=== PATIENT | male | born 1960 | race Caucasian/White ===

== ENCOUNTER → 2017-11-16 16:07 | Outpatient (CLI) | payer BC, SELFPAY ==
[2017-11-16 16:45] LABS: Add Manual Diff / Slide Review NO; Basophils Percent Auto 0.8 % (0-2); Eosinophils Percent Auto 2.9 % (2-4); Hematocrit 46.2 % (41-53); Hemoglobin 15.9 g/dL (13.5-17.5); Lymphocytes Percent Auto 28.6 % (25-40); Mean Corpuscular HGB Conc 34.5 % (30-36); Mean Corpuscular Hemoglobin 28.4 PG (26-34); Mean Corpuscular Volume 82.2 fL (80-100); Monocytes Percent Auto 9.6 % (3-14); Neutrophils Absolute Auto 3000 /uL (3000-5900); Neutrophils Percent Auto 58.1 % (50-75); Platelet Count 177 X10^3/uL (150-400); Red Blood Cell Count 5.61 X10^6/uL (4.5-5.9); Red Cell Distribution Width 15.2 % (11.6-14.8); White Blood Cell Count 5.1 X10^3/uL (4.5-11.0)
[2017-11-16 17:04] LABS: Alanine Aminotransferase 43 IU/L (21-72); Albumin 4.7 g/dL (3.5-5.0); Albumin Globulin Ratio 1.7 (1.0-2.8); Alkaline Phosphatase 61 U/L (38-126); Aspartate Aminotransferase 26 IU/L (17-59); BUN Creatinine Ratio 18.9 (6-22); Bilirubin Total 0.6 mg/dL (0.2-1.3); Blood Urea Nitrogen 17 mg/dL (9-20); Calcium 10.5 mg/dL (8.4-10.2); Carbon Dioxide 31 mmol/L (22-32); Chloride 100 mmol/L (98-107); Estimated Glomerular Filt Rate > 60.0 mL/min (>60); Globulin 2.8 g/dL (1.7-4.1); Glucose 104 mg/dL (70-100); HEMOLYSIS < 15 (0-50); Sodium 143 mmol/L (137-145); Total Protein 7.5 g/dL (6.3-8.2)
== END ==
PROVIDERS: Visit Provider Specialist
DX: K80.20 Calculus of gallbladder without cholecystitis without obstruction (principal); R10.11 Right upper quadrant pain
CPT/HCPCS: 36415; 80053; 85025

== ENCOUNTER 2017-11-22 21:21 | Observation (INO) | payer BC, SELFPAY ==
[2017-11-20 15:15] VITALS: BMI 45.4
[2017-11-22] VITALS (13 sets, daily range): BP systolic 122–184; BP diastolic 73–110; PULSE 71–97; RESP 12–20; TEMP 35.9–37.1; O2SAT 92–99; BMI 44.6
--- NOTE | 2017-11-22 | PATH_ITS ---
[facility] Accession Number: [id number] . 01 Material submitted: . GALLBLADDER . 02 Diagnosis: Gallbladder: Cholelithiasis with associated chronic cholecystitis. MRV/11/26/2017 . 02 Electronically signed: . Zbigniwe Zhang MD, Pathologist NPI- [id number] . 01 Gross description: . Received in formalin, labeled with the patient's name and gallbladder, is a 4.5 x 3.1 x 2.1 cm significantly disrupted, meier-brown gallbladder with multiple adhesions on the external surface. The wall appears fibrotic and averages 0.2 cm in thickness. The mucosa is green-brown with diffuse yellow stippling. Two black multifaceted gallstones are present measuring 1.5 cm and 1.6 cm in greatest dimension. Hr Analyst sections of cystic duct and gallbladder mucosa are submitted in cassette A1. (SAULO:[id number]) /FRR . 02 Pathologist provided ICD-10: K80.64 . 02 CPT . 585149 Performed at: 01 [facility] [address] [place] [address], [place], [place] [id number] MD Solis Khoury MD Phone: [phone] Performed at: 02 [facility] [address] [place], [place] [id number] MD Raul Long MD Phone: [phone]
--- NOTE | 2017-11-22 14:58 | PM.PREOP ---
Pre-operative Note Interval Note Pre-op Check: Yes History & Physical Reviewed by Physician and Yes Exam Performed Changes: Yes H&P completed within 30 days and has changed as indicated here:: Has a reddened area and cellulitis around a pimple in his left lower abdomen. It is not anywhere near where I will be making an incision so I think it is safe to proceed though I will have to treat him for cellulitis postoperatively.
[2017-11-22] MEDS: LACTATED RINGERS 1,000 ML 42 ML IV ×2 (15:00→17:50)
--- NOTE | 2017-11-22 15:04 | SUR.PREOP ---
dr orozco informed about scab and redness to l lower abdomen, in to see pt. no new orders, iv started by michele daley.
[2017-11-22] MEDS: CEFAZOLIN 2 GM/100 ML FROZ.PIGGY IV ×2 (16:02→22:53)
--- NOTE | 2017-11-22 16:30 | SUR.OPER ---
Supine on padded OR bed, head on pillow, arms secured on padded arm boards at <90 degrees abduction, legs uncrossed, safety belt at thigh, tape over blanket over lower legs.
[2017-11-22] MEDS: BUPIVACAINE 0.5% (PF) VIAL 30 ML INJ (16:52)
[2017-11-22] MEDS: LACTATED RINGERS 1,000 ML 100 ML IV (20:14)
--- NOTE | 2017-11-22 20:21 | PM.OP.1 ---
Operative Date/Time/Diagnoses Date of procedure: 11/22/17 Time of procedure: 20:00 Pre-op diagnosis: Cholelithiasis cholecystitis Post-op diagnosis: same (Chronic) Procedure & Clinicians Procedure: Laparoscopic cholecystectomy Same procedure as scheduled: Yes Indications: Upper abdominal pain and gallstones Surgeon: Shlomo Nicholson Click Yes if Unassisted: Yes Anesthesia Type: General Operative Notes Findings: Very abnormal gallbladder situated initially under the left lobe of the liver with chronic adhesions throughout. Very difficult operation Closure Type: primary Specimen(s): other (Gallbladder) Implants & Drains: 7 mm Todd-Lal drain Estimated Blood Loss (mL): 150 Blood products transfused: none Procedure in detail: Patient was placed supine on the operating room table and underwent general endotracheal anesthesia. He was prepped and draped in the usual fashion. I excluded the cellulitis in his left lower abdomen. Because of his very large size and made an incision above his umbilicus in the midline and carried down under direct vision in the peritoneal cavity. Stay sutures of 0 Polysorb were placed the fascia. And a son cannula was inserted. I inserted 2 ports 1 in the right lateral abdomen and 1 just to the right of midline and to the costal margin. Through these I attempted to locate the gallbladder. There were extensive adhesions of omentum to the liver that appeared to be chronic and may have been related to his prior pyloromyotomy as a child. These were taken down sharply and with cautery. After I freed up the entire right lobe of the liver edge I still had not found the gallbladder. With further dissection it was located actually to the left of the midline near the falciform but under the left lobe of the liver. Dissected free of surrounding adhesions with great care and I was able to elevate it. There was extensive adhesions to its surface and the anatomy was completely distorted. In addition, because of the location of my ports it became very difficult to see anything in the usual manner. I added a 4th port in the midclavicular line under the costal margin. I was limited somewhat by the scarring from his pyloromyotomy. I dissected omentum and fat off of the gallbladder with great care going very slowly and only dividing those things going directly to the gallbladder. Because the an anatomic distortion I did not want to assume any typical anatomy. I divided what initial at that was a cystic duct but it turned out to be a cystic artery. Three clips were placed across it was divided leaving 2 in the patient. The gallbladder was fragile and with the usual type of retraction and it opened and drained. There were no stones that came out however. Using the fact that I could see into the gallbladder I dissected it free of the liver and ultimately was left with a gallbladder attached at its end and presumptively the cystic duct. Through the opening I could see multiple stones and I pulled these out 1 at a time. They were wedged into the end of the gallbladder. Once I had cleared all of them by pulling them out 1 at a time I decided to pace placed a loop on the end of the gallbladder rather than attempting further dissection into heavily scarred and adhesed tissue. Two loops were ultimately used. I actually had to add an additional port in order to see and placed the loops appropriately. One gathered the tissue together the 2nd was slid down to the end of the gallbladder. There did not appear to be any compression of surrounding structures. The right upper quadrant was irrigated and suctioned free of fluid. There was no evidence of bilious drainage. The dissection had been quite difficult and the procedure took over 3 and 0.5 hr to perform. I placed a Todd-Lal drain 7 mm in the gallbladder fossa region and brought it out through the most lateral port. It was secured with a 3 0 nylon. The ports were all removed. The wounds were irrigated. Stay sutures at the umbilicus were tied after placing additional 0 Maxon between these 2 stitches. The subcu at the umbilicus was closed with 4 0 Polysorb and the skin in all areas was closed with interrupted 4 0 Polysorb subcuticular stitches except for the port above the umbilicus which was closed with a running subcuticular stitch. Steri-Strips were applied the patient was awakened and taken recovery area in good condition. There were no apparent complications. Complications: none Condition: stable Disposition: PACU
--- NOTE | 2017-11-22 21:15 | PC.NURSE ---
Heather shift note: Received patient to AC from PACU in stable condition. Patient awake, alert, and talkative. Abdomen tender, distended, hypoactvie BS. x 4 Large bandaids to mid and LUQ. Small bandaid to LLQ. CDI. 4 x 4 gauze dressing to RLQ with shadowing, secured with Island dressing, JANY secured with Sanguinous drainage noted. Patient on O2 at 2L via NC. VSS. Sister at bedside providing supportive care, SCDs in place.
[2017-11-22] MEDS: LACTATED RINGERS 1,000 ML 125 ML IV (22:02)
[2017-11-22] MEDS: ACETAMINOPHEN 325 MG TABLET 650 MG PO (22:02)
[2017-11-22] MEDS: OXYCODONE IR 5 MG TABLET 10 MG PO (23:56)
[2017-11-23] VITALS (7 sets, daily range): BP systolic 111–198; BP diastolic 66–112; PULSE 76–107; RESP 16–18; TEMP 36.5–36.9; O2SAT 93–97
[2017-11-23] MEDS: hydroCHLOROthiazide 25 MG TABLET PO ×2 (02:08→08:07)
[2017-11-23] MEDS: LOSARTAN 25 MG TABLET 50 MG PO (02:09)
[2017-11-23] MEDS: ACETAMINOPHEN 325 MG TABLET 650 MG PO ×2 (04:11→14:24)
[2017-11-23] MEDS: CEFAZOLIN 2 GM/100 ML FROZ.PIGGY IV ×2 (04:56→12:32)
[2017-11-23 05:59] LABS: Add Manual Diff / Slide Review NO; Basophils Percent Auto 0.2 % (0-2); Eosinophils Percent Auto 0.1 % (2-4); Hematocrit 42.8 % (41-53); Hemoglobin 14.7 g/dL (13.5-17.5); Lymphocytes Percent Auto 6.4 % (25-40); Mean Corpuscular HGB Conc 34.3 % (30-36); Mean Corpuscular Hemoglobin 28.7 PG (26-34); Mean Corpuscular Volume 83.6 fL (80-100); Monocytes Percent Auto 3.9 % (3-14); Neutrophils Absolute Auto 8100 /uL (3000-5900); Neutrophils Percent Auto 89.4 % (50-75); Platelet Count 158 X10^3/uL (150-400); Red Blood Cell Count 5.12 X10^6/uL (4.5-5.9); Red Cell Distribution Width 14.6 % (11.6-14.8); White Blood Cell Count 9.1 X10^3/uL (4.5-11.0)
[2017-11-23 06:08] LABS: Alanine Aminotransferase 73 IU/L (21-72); Albumin 4.2 g/dL (3.5-5.0); Albumin Globulin Ratio 1.5 (1.0-2.8); Alkaline Phosphatase 48 U/L (38-126); Aspartate Aminotransferase 67 IU/L (17-59); BUN Creatinine Ratio 22.5 (6-22); Bilirubin Total 0.7 mg/dL (0.2-1.3); Blood Urea Nitrogen 18 mg/dL (9-20); Calcium 9.4 mg/dL (8.4-10.2); Carbon Dioxide 27 mmol/L (22-32); Chloride 101 mmol/L (98-107); Estimated Glomerular Filt Rate > 60.0 mL/min (>60); Globulin 2.8 g/dL (1.7-4.1); Glucose 166 mg/dL (70-100); HEMOLYSIS 16 (0-50); Potassium 4.4 mmol/L (3.4-5.1); Sodium 139 mmol/L (137-145)
[2017-11-23] MEDS: LACTATED RINGERS 1,000 ML 125 ML IV (06:59)
[2017-11-23] MEDS: ENOXAPARIN 40 MG/0.4 ML SYRINGE SUBCUT (08:06)
[2017-11-23] MEDS: LOSARTAN 50 MG TABLET 100 MG PO (08:07)
[2017-11-23] MEDS: GABAPENTIN 300 MG CAPSULE PO (08:07)
[2017-11-23] MEDS: OXYCODONE IR 5 MG TABLET 10 MG PO (08:08)
--- NOTE | 2017-11-23 13:36 | CM.DANOTE ---
Discharge Planning/Care Management CM Discharge Assessment Start: 11/23/17 13:34 Freq: Status: Active Protocol: Document 11/23/17 13:34 (Rec: 11/23/17 13:36 [id number]) Discharge Planning Assessment Assigned Nursing Assistants Teacher MAUREEN Pavon Advance Directives? No Advance Directives on File No History Provided By Patient Medical Record Has Patient been admitted in last 30 No days? Prior Living Arrangements House Household Members spouse Type of transporation used prior to Drives own vehicle admit Independent with ADL's Yes Is patient alert and oriented? Yes Discharge Plan Home Transportation Arrangement Mom with provide transportation. Referrals Initiated None needed Whiteboard Updated in Patient Room with Yes name and ext. # of Nursing Assistants Teacher Review Status In Process Please Provide Date Initial DC 11/23/17 Assessment Was Performed Next Review Type Continued Stay Review Met with patient: patient eager to discharge and hopeful it would be today. Patient states his is out of town so patient will have his mom provide transportation to his sister's house and his sister will assist patient. Patient has no needs or concerns at this time. Plan: discharge home when stable with supportive family. CM team available as needed.
--- NOTE | 2017-11-23 16:22 | PC.NURSE ---
Addendum entered by Estefania Ovalles R.N. 11/23/17 16:59: called surgical dept asking for Dr. Orozco, per staff he was not there. paged for Dr. orozco via number in clinical rolodex, no answer back. Dr. damon seen on unit but states he is not covering for Dr. Orozco as he is downstairs in surgery. Called PACU but per staff, Dr. Orozco had just left for the day. Pt verbalized wanting to d/c home MARIELA and not willing to wait any longer for MD, willing to go home with prescription that was given to him. d/c off nit at approximately 1659 via wheelchair with GLUE DRIER OPERATOR escort. Original Note: DISCHARGE Received pt with d/c orders. pt had PIV removed, drain pulled, and dressing changed by previous shift RN. reviewed d/c orders with pt. pt requesting to have prescription for PRN oxycodone instead of norco since he was already tolerating it without difficulties while here in the hospital. Awaiting call back from Dr. Orozco regarding meds.
--- NOTE | 2017-11-23 17:58 | P.DS_ITS ---
History of Present Illness Date Patient Seen: 11/23/17 Time Patient Seen: 16:00 Chief complaint: [id number] Narrative: Patient is a gentleman brought in for removal of his gallbladder. He has had symptoms for at least 2 years and had known gallstones. He finally decided to have something done about it. Discharge Providers Date of admission: 11/22/17 21:21 Consults: 11/22/17 21:11 Consult to Discharge Planning Routine Comment: Discharge provider: Shlomo Nicholson MD Summary Discharge Diagnosis: Cholelithiasis with cholecystitis chronic Essential hypertension chronic Morbid obesity chronic with a BMI 45. Hospital Course: Patient had a very difficult laparoscopic cholecystectomy performed. A drain was left in he was kept overnight for observation. His white blood cell count was normal in the morning. His liver function tests were only slightly elevated and his bilirubin and alk-phos were entirely normal. He tolerated a general diet was anxious to go home. I decided to let him do so. He was given detailed instructions and follow-up planned as per his already scheduled appointment. Status at Discharge Cognitive/behavioral status at discharge: Normal Functional status at discharge: independent ambulation Overall status at discharge: patient is back to baseline (Except for postop changes) Time Spent with Patient Less than 30 minutes Exam Vital Signs (past 8 hours): - 11/23/17 13:17 Temperature 97.7 F Pulse Rate 76 Respiratory Rate 16 Blood Pressure 111/66 Pulse Oximetry 96 Oxygen Delivery Method Room Air Oxygen Flow Rate 0 Narrative Exam Narrative: Lungs are clear to auscultation. No rales rhonchi. No wheezing. Heart regular rate and rhythm without murmur gallop. Abdomen is protuberant soft nontender. Dressings are dry and intact. Objective Labs Result Diagrams: 11/23/17 05:45 11/23/17 05:45 Labs: Laboratory Results - last 24 hr 11/23/17 11/23/17 05:45 05:45 WBC 9.1 RBC 5.12 Hgb 14.7 Hct 42.8 MCV 83.6 MCH 28.7 MCHC 34.3 RDW 14.6 Plt Count 158 Neut % (Auto) 89.4 H Lymph % (Auto) 6.4 L Collier % (Auto) 3.9 Eos % (Auto) 0.1 L Baso % (Auto) 0.2 Neut # (Auto) 8100 H Sodium 139 Potassium 4.4 Chloride 101 Carbon Dioxide 27 BUN 18 Creatinine 0.80 Estimated GFR > 60.0 BUN/Creatinine Ratio 22.5 H Glucose 166 H Calcium 9.4 Total Bilirubin 0.7 AST 67 H ALT 73 H Alkaline Phosphatase 48 Total Protein 7.0 Albumin 4.2 Globulin 2.8 Albumin/Globulin Ratio 1.5 Discharge Plan Discharge Plan Patient Disposition: Home Discharge comment: Call your doctor if you have a fever, persistent nausea, persistent diarrhea. Discharge Med Rec/Prescriptions Prescriptions: New hydrocodone-acetaminophen [[place]] 5-325 mg tablet 2 tab PO Q6H PRN (Reason: painful procedure) Qty: 14 RF: 0 Continue albuterol sulfate [Ventolin HFA] 90 MCG/PUFF HFA aerosol inhaler 2 puff INH Q4HP PRNQty: 1 RF: 0 losartan-hydrochlorothiazide 100-25 mg tablet 1 tab PO DAILY RF: 0 Provider Discharge Instructions Diet: Diet as Tolerated Activity: Do not drive until pain free off medication. Do not lift over 10 lb for 6 weeks. Do not strain or have sex for 6 weeks. Skin/Wound/Dressing Care Report to your healthcare provider any signs of infection, such as:: chills, fever, night sweats, increased pain and unusual drainage Dressing: You will probably need to leave a dressing on the site where the drain was until it stops draining. This will probably take several days. He may remove the Band-Aids and shower tomorrow. Leave tape under gauze fall off on its own. Visit Report/Discharge Packet Instructions: Fat-Restricted Diet, DI for Cholecystectomy, Hydrocodone Visit Report Forms: Stroke Signs & Symptoms Discharge Data Attending Provider: Shlomo Nicholson Admit Date/Time: 11/22/17 21:21 Discharges patient from system. Discharge Date/Time: 11/23/17 16:59 Quality VTE Deep Vein Thrombosis/Pulmonary Embolism Present on Admission: No
--- NOTE | 2017-11-24 08:21 | CM.DPC ---
DCP Discharge Home Per MD yesterday evening 11/23/17, pt was medically stable to d/c home with family and no identified barriers to discharge. Plan: Patient discharged home yesterday evening after SW shift with family and no SW needs identified. MAUREEN Scruggs
== END 2017-11-23 16:59 | disposition home or self-care (01) ==
LOC: AC 21:21
PROVIDERS: Admitting Provider Specialist; Visit Provider Specialist
PROC: 0FT44ZZ Resection of Gallbladder, Percutaneous Endoscopic Approach (ICD-10-PCS; CPT 47562; principal; 2017-11-22 15:15)
DX: K80.10 Calculus of gallbladder with chronic cholecystitis without obstruction (principal); K82.8 Other specified diseases of gallbladder; I10 Essential (primary) hypertension
CPT/HCPCS: 47562; 36415; 80053; 85025; G0378; J0690; J1100; J1650; J2250; J2405; J2704; J3010

== ENCOUNTER 2020-01-17 17:54 | Emergency (ER) | payer BC, SELFPAY ==
[2017-11-22 21:25] VITALS: BMI 44.6
[2020-01-17 18:00] VITALS: BP 183/95; PULSE 59; RESP 18; TEMP 36.4; O2SAT 97; BMI 44.9
--- NOTE | 2020-01-17 18:24 | DI.US.S_ITS ---
PROCEDURE: US SCROTUM INDICATIONS: testicular pain TECHNIQUE: Real-time scanning was performed of the scrotum and testicles, with image documentation. Color and pulse Doppler interrogation was performed of both testicles. COMPARISON: None. FINDINGS: Right: Testicle is normal in size at 4.9 x 3.1 x 3 point cm, and homogenous in echotexture. Epididymis is normal in overall size and morphology. Small 4 x 2 x 4 millimeter cyst noted in the right epididymal body. No hydrocele or varicoceles. Overlying scrotal skin is normal in thickness. Left: Testicle is normal in size at 4.6 x 2.7 x 3.4 cm, and homogeneous in echotexture. Epididymis is normal in overall size and morphology. No hydrocele or varicoceles. Overlying scrotal skin is normal in thickness. Doppler: Color and pulse Doppler demonstrate arterial flow in both testicles. There is increased vascular flow to the right testicle and epididymis relative to the left. IMPRESSION: 1. No evidence of testicular torsion. Please note ultrasound cannot exclude intermittent torsion. 2. Increased vascular flow to the right testicle and right epididymis relative to the left concerning for right epididymo-orchitis. Please correlate with clinical findings. Dictated by: Radhika Del Angel MD, PhD on 01/17/2020 at 19:18 Approved by: Radhika Del Angel MD, PhD on 01/17/2020 at 19:20
--- NOTE | 2020-01-17 19:57 | ED.GENADULT ---
HPI - General Adult General Chief complaint: Urogenital-Male Stated complaint: right side testicular pain Time Seen by Provider: 01/17/20 18:24 Source: patient Mode of arrival: Ambulatory Limitations: no limitations History of Present Illness HPI narrative: Patient is a 59-year-old male here for evaluation of right-sided testicular pain. He has had the pain for the past 4 days. He states that there are periods of time when it is more than others but he has never been symptom-free in the past 4 days. He denies any trauma. Denies any urinary symptoms. Has not tried anything for symptoms. The reason he came in this evening is because the pain started to get worse and he thought he should get it checked out. Related Data Home Medications Medication Instructions Recorded Confirmed losartan 100 1 tab PO DAILY 11/16/17 01/17/20 mg-hydrochlorothiazide 25 mg tablet Previous Rx's Medication Instructions Recorded albuterol sulfate [Ventolin HFA] 2 puff INH Q4HP PRN #1 inh 02/14/16 hydrocodone-acetaminophen [Bantry] 2 tab PO Q6H PRN #14 tab 11/23/17 nystatin-triamcinolone 100,000 1 applictn TOP BID #30 gram 12/05/17 unit/g-0.1 % topical cream Allergies Allergy/AdvReac Type Severity Reaction Status Date / Time Sulfa (Sulfonamide AdvReac Redness of Verified 01/17/20 18:00 Antibiotics) Skin Review of Systems Constitutional Constitutional: Denies fever(s) Cardiovascular Cardiovascular: Denies chest pain Genitourinary Genitourinary: Denies dysuria, Reports testicular pain, Denies urinary hesitancy and Denies urinary incontinence Genitourinary: Denies dysuria, Denies urinary incontinence and Denies urinary hesitancy Integumentary/Breasts Skin/Breast: Denies lesions and Denies rash Neurologic Neurologic: Denies behavioral changes Psychiatric Psychiatric: Denies behavioral changes Hematologic/Lymphatic Hematologic/Lymphatic: Denies easy bleeding and Denies easy bruising Patient History Medical History HTN (hypertension) (Chronic) Surgical History History of nasal surgery (Chronic) Pyloric stenosis (Resolved) Family History Father Heart disease Mother Cancer Social History marital status: household members: spouse Smoking Status: Never smoker alcohol intake: current substance use type: does not use Smoking Status: Never smoker alcohol intake frequency: holidays/special occasions only Substance Use Type: does not use Exam Initial Vital Signs Initial Vital Signs: Vital Signs Temperature 97.6 F 01/17/20 18:00 Pulse Rate 59 L 01/17/20 18:00 Respiratory Rate 18 01/17/20 18:00 Blood Pressure 183/95 H 01/17/20 18:00 Pulse Oximetry 97 01/17/20 18:00 Const General: cooperative and comfortable External: circumcised Penis: normal penis Meatus: meatus normal Scrotum: scrotum normal Testes: normal, epididymal tenderness on the right, no testicular swelling and no testicular tenderness Skin Lesions: no lesions Rashes: no rashes Neuro General: patient alert and patient awake Cognition: normal cognition Speech: speech normal Extrem General: capillary refill normal Course Orders Ordered: ED Orders 01/17/20 18:24 US scrotum Stat Vital Signs Vital signs: Vital Signs - 8 hr 01/17/20 18:00 01/17/20 20:05 Temperature 97.6 F Pulse Rate 59 L 80 Respiratory Rate 18 16 Blood Pressure 183/95 H 175/88 H Pulse Oximetry 97 97 Medical Decision Making Imaging Data Scrotal ultrasound: Radiologist's Impression: [address] [address] Ultrasound Report Signed Patient: Davonte Rowe FMR#: [id number] : 9Acct:[id number] Age/Sex: 59 / MDate of Service: 01/17/20 Loc: ED Accession Number: [id number] Procedure: US scrotum Ordering Provider: João Rios D.O. PROCEDURE: US SCROTUM INDICATIONS: testicular pain TECHNIQUE: Real-time scanning was performed of the scrotum and testicles, with image documentation. Color and pulse Doppler interrogation was performed of both testicles. COMPARISON: None. FINDINGS: Right: Testicle is normal in size at 4.9 x 3.1 x 3 point cm, and homogenous in echotexture. Epididymis is normal in overall size and morphology. Small 4 x 2 x 4 millimeter cyst noted in the right epididymal body. No hydrocele or varicoceles. Overlying scrotal skin is normal in thickness. Left: Testicle is normal in size at 4.6 x 2.7 x 3.4 cm, and homogeneous in echotexture. Epididymis is normal in overall size and morphology. No hydrocele or varicoceles. Overlying scrotal skin is normal in thickness. Doppler: Color and pulse Doppler demonstrate arterial flow in both testicles. There is increased vascular flow to the right testicle and epididymis relative to the left. IMPRESSION: 1. No evidence of testicular torsion. Please note ultrasound cannot exclude intermittent torsion. 2. Increased vascular flow to the right testicle and right epididymis relative to the left concerning for right epididymo-orchitis. Please correlate with clinical findings. Dictated by: Radhika Del Angel MD, PhD on 01/17/2020 at 19:18 Approved by: Radhika Del Angel MD, PhD on 01/17/2020 at 19:20 [facility] Narrative Medical decision making narrative: Patient has a physical exam is consistent with right epididymitis. This correlates with what is found on the ultrasound. He denies any urinary symptoms. He has no concern for sexually transmitted infections. No indication for antibiotics. We did discuss conservative treatment. I do have low suspicion for testicular torsion given his history and physical. Patient was given return precautions and follow-up instructions. He expressed understanding and agreement. Discharge Plan Departure Patient Disposition: Home Clinical Impression: Epididymitis, Orchitis Discharge Date/Time: 01/17/20 20:06 Instructions: DI for Epididymitis Activity Restrictions/Additional Instructions: Recommend that you wear supportive clothing. You can also take anti-inflammatories such as Motrin or Naprosyn. You can also ice the area. Contact your primary provider for follow-up. Return to the emergency department for any new or worsening symptoms Prescriptions: No Action albuterol sulfate [Ventolin HFA] 90 MCG/PUFF HFA aerosol inhaler 2 puff INH Q4HP PRNQty: 1 RF: 0 nystatin-triamcinolone 100,000-0.1 unit/g-% cream 1 applictn TOP BID Qty: 30 RF: 1 losartan-hydrochlorothiazide 100-25 mg tablet 1 tab PO DAILY RF: 0 hydrocodone-acetaminophen [Bantry] 5-325 mg tablet 2 tab PO Q6H PRN (Reason: painful procedure) Qty: 14 RF: 0 Referrals: Miscellaneous,Doctor, MD [Primary Care Provider] -
[2020-01-17 20:05] VITALS: BP 175/88; PULSE 80; RESP 16; O2SAT 97
== END 2020-01-17 20:06 | disposition home or self-care (01) ==
PROVIDERS: Emergency Provider Emergency Medicine
DX: N45.3 Epididymo-orchitis (principal)
CPT/HCPCS: 76870; 99283

== ENCOUNTER 2021-11-15 12:54 | Emergency (ER) | payer BC, SELFPAY ==
[2017-11-22 21:25] VITALS: BMI 44.6
[2021-11-15] VITALS (12 sets, daily range): BP systolic 128–164; BP diastolic 72–89; PULSE 50–87; RESP 16–23; TEMP 36.6; O2SAT 92–97
--- NOTE | 2021-11-15 13:53 | PC.NURSE ---
Pt does not want to wear a mask. Approached with rational / policy however continues to decline. Offered to wait in the car and have us call via cell phone which he agreed.
--- NOTE | 2021-11-15 16:04 | PC.NURSE ---
Pt seen on 11/04 at [facility] for a hangnail and prescribed bactrium. Pt took a total of 2 doses one on 11/04 and 11/05 respectively. Pt noticed rash begin on his arms, legs, and face which worsening with exposure to sun. Rash is now spread to his face chest and back with multiple scabbed over blisters to his arms and legs. Pt reports intense itching and only reports pain around his lips. Pt denies difficulty swallowing or breathing. Pt is breathing easy and unlabored. Pt also reports vitiligo.
--- NOTE | 2021-11-15 16:58 | ED.ALLEREA ---
HPI - Allergic Reaction <Gilda Mendez ORTHOTIC FITTER - Last Filed: 11/15/21 20:48> General Chief complaint: Allergic Reaction Stated complaint: Rash on body/Sulfa allergy getting worse Time Seen by Provider: 11/15/21 16:40 Source: patient Mode of arrival: Ambulatory History of Present Illness HPI narrative: This is a 61-year-old male with history of hypertension, VIOLETA cholelithiasis without cholecystectomy who takes losartan and he presents to the emergency department with a rash over his body after taking sulfa for a right great toe infection on 11/04/2021. He states he took this medication for 2 days, states that he thought he had an allergy as a kid but when I asked him if he had allergies this day he did not respond with yes to sulfa. He then developed urticarial lesions and was prescribed prednisone, steroid cream, and topical antibiotic ointment. He states that his rash has been progressive despite taking 40 mg of prednisone for the last 4 days, using steroid ointment and taking hydroxyzine for pruritus. Patient takes losartan for his hypertension, has been taking hydroxyzine for his itching, states he is now. He denies any intraoral involvement. He states that his toenail got better after he pulled the hangnail out. Endorses blisters on some of the rash around his ankles, states he had a sunburn on his bilateral upper extremities when the rash started he states that it started on his bilateral upper forearms, and then has since progressed to the rest of his body. Related Data Home Medications Medication Instructions Recorded Confirmed losartan 100 1 tab PO DAILY 11/16/17 11/12/21 mg-hydrochlorothiazide 25 mg tablet Previous Rx's Medication Instructions Recorded albuterol sulfate 90 mcg/actuation 2 puff INH Q4HP PRN #1 inh 02/14/16 aerosol inhaler (Ventolin HFA) hydrocodone 5 mg-acetaminophen 325 2 tab PO Q6H PRN painful procedure 11/23/17 mg tablet (Pine) #14 tabs nystatin-triamcinolone 100,000 1 applictn topical BID Allergic 12/05/17 unit/g-0.1 % topical cream dermatitis #30 grams mupirocin 2 % topical ointment 1 applic topical BID #15 grams 11/04/21 hydroxyzine HCl 25 mg tablet 25 mg PO BEDTIME #10 tabs 11/12/21 cetirizine 10 mg tablet 20 mg PO BID #120 tabs 11/15/21 diphenhydramine HCl 25 mg capsule 50 mg PO BEDTIME PRN allergy 11/15/21 (Benadryl) symptoms #30 caps hydroxyzine HCl 25 mg tablet 25 mg PO Q6-8H PRN itching #60 tabs 11/15/21 prednisone 20 mg tablet 20 mg PO DAILY 5 days #5 tabs 11/15/21 triamcinolone acetonide 0.5 % 1 applic topical TID #2 tubes 11/16/21 topical ointment Allergies Allergy/AdvReac Type Severity Reaction Status Date / Time Sulfa (Sulfonamide AdvReac Redness of Verified 11/12/21 08:40 Antibiotics) Skin Review of Systems <CHIDI Mena - Last Filed: 11/15/21 20:48> Review of Systems Narrative: Review of systems is negative for acute abnormalities unless otherwise noted in HPI Patient History <CHIDI Mena - Last Filed: 11/15/21 20:48> Medical History (Updated 11/15/21 @ 20:00 by CHIDI Mena) HTN (hypertension) Surgical History History of nasal surgery Pyloric stenosis Family History Father Heart disease Mother Cancer Social History marital status: household members: spouse Smoking Status: Never smoker alcohol intake: current substance use type: does not use Smoking Status: Never smoker alcohol intake frequency: holidays/special occasions only Substance Use Type: does not use Exam <CHIDI Mena - Last Filed: 11/15/21 20:48> Narrative Exam Narrative: Reviewed vitals signs and nursing notes. General: cooperative, appears uncomfortable, pruritic erythematous urticarial lesions covering torso and back, sides and arms, patient states that this very uncomfortable. HEENT: symmetrical facial expressions, moist mucous membranes Cardiovascular: regular rate and rhythm, no peripheral edema, warm extremities Respiratory: normal effort, able to speak in complete sentences, without wheezing, stridor, or abnormal breath sounds. No retractions or tachypnea. GI: abdomen soft, nontender to palpation, nondistended, without masses, rebound tenderness or exquisite tenderness with exam. MSK: moves all extremities, neurovascularly intact, no weakness, normal tone Skin: brisk capillary refill, without pallor erythematous rash with base covering entire body, patient complains of pruritus to the lesions on his back which appear to be hives, he has occasional blisters, some scaling of healed rash on his forearms, patient was sunburned previously and this could be healing from that. Photos were sent to [facility] for evaluation and appended to the chart Neuro: normal speech and cognition, A&O x3, ambulatory, clear speech Psych: mental status is grossly normal, congruent mood, normal affect, pleasant and cooperative Initial Vital Signs Initial Vital Signs: Vital Signs Temperature 97.9 F 11/15/21 13:06 Pulse Rate 87 11/15/21 13:06 Respiratory Rate 22 11/15/21 13:06 Blood Pressure 136/87 11/15/21 13:06 Pulse Oximetry 97 11/15/21 13:06 Oxygen Delivery Method 11/15/21 13:06 <Hallie Wallace DO - Last Filed: 11/19/21 08:48> Initial Vital Signs Initial Vital Signs: Vital Signs Temperature 97.9 F 11/15/21 13:06 Pulse Rate 87 11/15/21 13:06 Respiratory Rate 22 11/15/21 13:06 Blood Pressure 136/87 11/15/21 13:06 Pulse Oximetry 97 11/15/21 13:06 Oxygen Delivery Method 11/15/21 13:06 Course <CHIDI Mena - Last Filed: 11/15/21 20:48> Orders Ordered: Discontinued Medications Diphenhydramine HCl (Diphenhydramine 50 Mg/Ml Vial) 25 mg IV NOW ONE Stop: 11/15/21 16:57 Last Admin: 11/15/21 17:05 Dose: 25 mg Documented By: BEN Loratadine (Loratadine 10 Mg Tablet) 10 mg PO NOW ONE Stop: 11/15/21 16:57 Last Admin: 11/15/21 17:06 Dose: 10 mg Documented By: BEN Methylprednisolone (Methylprednisolone 125 Mg/2 Ml Vial) 125 mg IV NOW ONE Stop: 11/15/21 16:53 Last Admin: 11/15/21 17:06 Dose: 125 mg Documented By: SB Pantoprazole Sodium (Pantoprazole 40 Mg Vial) 20 mg IV NOW ONE Stop: 11/15/21 16:57 Last Admin: 11/15/21 17:05 Dose: 20 mg Documented By: BEN Consultations Consultation #1: Consultation with Alexa Akers from [facility] for concern about Damon-Andreas syndrome versus TEN versus dress syndrome. She received photos and we discussed patient's history and events leading up to his hospital presentation today. She states that his rash does not meet criteria for Ramón Andreas syndrome, paired with the lack of systemic symptoms of illness, fever, intraoral sloughing or evidence of end-organ dysfunction from [facility] who received photos of patient's rash. She recommends quadruple dose antihistamine: Zyrtec 20 mg b.i.d. until his symptoms improve to penetrate the skin. She states steroids are not typically helpful. She also recommends re-evaluation for end-organ damage or systemic symptoms of illness in 3-[address] Akers also mentions that hypersensitivity rashes peak 10-15 days after taking this medication and he should not have any worsening of this. Vital Signs Vital signs: Vital Signs - 8 hr 11/15/21 13:06 11/15/21 15:31 11/15/21 15:31 Temperature 97.9 F Pulse Rate 87 69 Respiratory Rate 22 Blood Pressure 136/87 146/73 H Pulse Oximetry 97 96 Oxygen Delivery Method Room Air 11/15/21 17:11 11/15/21 17:13 11/15/21 17:13 Temperature Pulse Rate 73 76 Respiratory Rate Blood Pressure 164/89 H Pulse Oximetry 92 97 Oxygen Delivery Method 11/15/21 17:19 11/15/21 17:19 11/15/21 17:30 Temperature Pulse Rate 65 56 L Respiratory Rate 18 22 Blood Pressure 150/73 H Pulse Oximetry 97 97 Oxygen Delivery Method 11/15/21 17:31 11/15/21 17:31 11/15/21 18:00 Temperature Pulse Rate 55 L 63 Respiratory Rate 18 16 Blood Pressure 150/72 H Pulse Oximetry 97 96 Oxygen Delivery Method 11/15/21 18:01 11/15/21 18:01 11/15/21 18:30 Temperature Pulse Rate 53 L 60 Respiratory Rate 23 Blood Pressure 150/75 H Pulse Oximetry 97 97 Oxygen Delivery Method 11/15/21 18:31 11/15/21 18:31 11/15/21 20:02 Temperature Pulse Rate 50 L Respiratory Rate Blood Pressure 150/79 H 128/76 Pulse Oximetry 96 Oxygen Delivery Method 11/15/21 20:02 Temperature Pulse Rate 51 L Respiratory Rate 19 Blood Pressure Pulse Oximetry 95 Oxygen Delivery Method <Hallie Wallace DO - Last Filed: 11/19/21 08:48> Orders Ordered: Discontinued Medications Diphenhydramine HCl (Diphenhydramine 50 Mg/Ml Vial) 25 mg IV NOW ONE Stop: 11/15/21 16:57 Last Admin: 11/15/21 17:05 Dose: 25 mg Documented By: BEN Loratadine (Loratadine 10 Mg Tablet) 10 mg PO NOW ONE Stop: 11/15/21 16:57 Last Admin: 11/15/21 17:06 Dose: 10 mg Documented By: BEN Methylprednisolone (Methylprednisolone 125 Mg/2 Ml Vial) 125 mg IV NOW ONE Stop: 11/15/21 16:53 Last Admin: 11/15/21 17:06 Dose: 125 mg Documented By: SB Pantoprazole Sodium (Pantoprazole 40 Mg Vial) 20 mg IV NOW ONE Stop: 11/15/21 16:57 Last Admin: 11/15/21 17:05 Dose: 20 mg Documented By: BEN Vital Signs Vital signs: Vital Signs - 8 hr 11/15/21 13:06 11/15/21 15:31 11/15/21 15:31 Temperature 97.9 F Pulse Rate 87 69 Respiratory Rate 22 Blood Pressure 136/87 146/73 H Pulse Oximetry 97 96 Oxygen Delivery Method Room Air 11/15/21 17:11 11/15/21 17:13 11/15/21 17:13 Temperature Pulse Rate 73 76 Respiratory Rate Blood Pressure 164/89 H Pulse Oximetry 92 97 Oxygen Delivery Method 11/15/21 17:19 11/15/21 17:19 11/15/21 17:30 Temperature Pulse Rate 65 56 L Respiratory Rate 18 22 Blood Pressure 150/73 H Pulse Oximetry 97 97 Oxygen Delivery Method 11/15/21 17:31 11/15/21 17:31 11/15/21 18:00 Temperature Pulse Rate 55 L 63 Respiratory Rate 18 16 Blood Pressure 150/72 H Pulse Oximetry 97 96 Oxygen Delivery Method 11/15/21 18:01 11/15/21 18:01 11/15/21 18:30 Temperature Pulse Rate 53 L 60 Respiratory Rate 23 Blood Pressure 150/75 H Pulse Oximetry 97 97 Oxygen Delivery Method 11/15/21 18:31 11/15/21 18:31 11/15/21 20:02 Temperature Pulse Rate 50 L Respiratory Rate Blood Pressure 150/79 H 128/76 Pulse Oximetry 96 Oxygen Delivery Method 11/15/21 20:02 Temperature Pulse Rate 51 L Respiratory Rate 19 Blood Pressure Pulse Oximetry 95 Oxygen Delivery Method MDM - Allergic Reaction <CHIDI Mena - Last Filed: 11/15/21 20:48> Lab Data Result diagrams: 11/15/21 15:58 11/15/21 15:58 Labs: Lab Results 11/15/21 11/15/21 11/15/21 Range/Units 15:58 15:58 20:35 WBC 8.1 (4.5-11.0) X10^3/uL RBC 5.39 (4.5-5.9) X10^6/uL Hgb 15.5 (13.5-17.5) g/dL Hct 45.7 (41-53) % MCV 84.9 (80-100) fL MCH 28.8 (26-34) PG MCHC 33.9 (30-36) % RDW 14.9 H (11.6-14.8) % Plt Count 204 (150-400) X10^3/uL Neut % (Auto) 73.7 (50-75) % Lymph % (Auto) 15.4 L (25-40) % Barnes % (Auto) 5.3 (3-14) % Eos % (Auto) 5.3 H (2-4) % Baso % (Auto) 0.3 (0-2) % Neut # (Auto) 6000 (5489-5602) /uL Lymph # (Auto) 1200 (2434-7803) /uL Barnes # (Auto) 400 (0-900) /uL Eos # (Auto) 400 (0-450) /uL Baso # (Auto) 0 (0-100) /uL ESR 3 (0-15) MM/HR Sodium 139 (137-145) mmol/L Potassium 4.3 (3.4-5.1) mmol/L Chloride 101 (98-107) mmol/L Carbon Dioxide 28 (22-32) mmol/L BUN 20 (9-20) mg/dL Creatinine 0.95 (0.66-1.25) mg/dL Estimated GFR > 60 (>60) mL/min BUN/Creatinine Ratio 21.1 (6-22) Glucose 126 H (80-110) mg/dL Calcium 10.5 H (8.4-10.2) mg/dL Total Bilirubin 0.6 (0.2-1.3) mg/dL AST 44 (17-59) IU/L ALT 37 (<50) IU/L Alkaline Phosphatase 59 (38-126) U/L C-Reactive Protein < 0.5 (<1.0) mg/dL Total Protein 7.9 (6.3-8.2) g/dL Albumin 4.7 (3.5-5.0) g/dL Globulin 3.2 (1.7-4.1) g/dL Albumin/Globulin Ratio 1.5 (1.0-2.8) Urine Color Yellow Urine Appearance Clear Urine pH 5.0 (4.5-8.0) Ur Specific Slater 1.010 (1.000-1.035) Urine Protein Negative (Negative) Urine Glucose (UA) Negative (Negative) g/dL Urine Ketones Negative (NEGATIVE) Urine Occult Blood Negative (Negative) Urine Nitrate Negative (Negative) Urine Bilirubin Negative (NEGATIVE) Urine Urobilinogen 0.2 (0.2) E.U./dL Ur Leukocyte Esterase Negative (NEGATIVE) Urine RBC None seen (0-5/HPF) Urine WBC 0-1/hpf (0-5/HPF) Ur Squamous Epith Cells None seen (0-5/HPF) Urine Bacteria None seen (None) Ur Culture Indicated? Cult not indicated MDM Narrative Medical decision making narrative: This is a 61-year-old male presents to the emergency department for a rash all over his whole body which is itchy, red, and getting worse, after receiving Bactrim on 11/04/2021 with history of sulfa allergy. At the time on 11/04/2021, patient did not remember having an allergy to sulfa. He took Bactrim for 2 days, states that he had a rash develop on his forearms, it eventually moved systemically and he has an urticarial rash all over his body with erythema to his face, back, torso and bilateral upper and lower extremities. Consultation with [facility] with concern for SJS versus TEN verses dress syndrome and Dr. Callie Akers states that this likely does not meet criteria and this is more appearing of a drug hypersensitivity rash. Patient does not have any systemic symptoms of illness including fever or end-organ damage. She recommends quadruple antihistamine dosing for symptoms until they resolve. Patient was prescribed Zyrtec 20 mg b.i.d. for the next 20 days or until resolution whichever is 1st. She states that these rashes peak approximately day 10 through 14, patient is on day 11 today and denies any worsening of this. He was given methylprednisolone in the emergency department, Dr. Akers states that steroids typically do not have any improvement of this type of rash, he was given a prednisone taper for the next 5 days since he has been on steroids for the last 5. Encourage patient to use hydroxyzine as needed for pruritus, Benadryl 50 mg at night, and quadruple does Zyrtec daily. He is encouraged to follow-up at the walk-in clinic since he does not have a primary care provider in 3-5 days for lab work which should include a CMP, CBC, and UA looking for end-organ dysfunction compare to his lab work today. She mentioned there is concern if patient has any intraoral lesions which he does not. Lab workup today does not show any elevated creatinine or signs of end-organ dysfunction, he does not have any leukocytosis or thrombocytopenia. His ESR is still pending and UA does not show any signs of infection or blood, leukocyte esterase, or nitrates. Patient understands his discharge instructions and will return to the emergency department for any new or worsening symptoms in the meantime. Encouraged him to establish care with 1 of the primary care providers at [facility]. Differential diagnoses also include acute cutaneous lupus erythematosus, patient has history of vitiligo, no evidence of this today, viral exanthem, hyper eosinophilic syndrome, acute generalized exanthematous pustulosis, TEN, SJS. She states is most likely a drug hypersensitivity rash without meeting criteria for these. Patient is appropriate and amenable to discharge home. Vital signs are stable on repeat examination is unremarkable. Patient has been informed of results. Patient has been given strict return to ER precautions for any new or worsening symptoms. Patient understands to follow up closely with outpatient providers as instructed. Patient understands plan and agrees to discharge home. All questions and concerns answered at this time. <Hallie Wallace, DO - Last Filed: 11/19/21 08:48> Lab Data Labs: Lab Results 11/15/21 11/15/21 11/15/21 Range/Units 15:58 15:58 20:35 WBC 8.1 (4.5-11.0) X10^3/uL RBC 5.39 (4.5-5.9) X10^6/uL Hgb 15.5 (13.5-17.5) g/dL Hct 45.7 (41-53) % MCV 84.9 (80-100) fL MCH 28.8 (26-34) PG MCHC 33.9 (30-36) % RDW 14.9 H (11.6-14.8) % Plt Count 204 (150-400) X10^3/uL Neut % (Auto) 73.7 (50-75) % Lymph % (Auto) 15.4 L (25-40) % Barnes % (Auto) 5.3 (3-14) % Eos % (Auto) 5.3 H (2-4) % Baso % (Auto) 0.3 (0-2) % Neut # (Auto) 6000 (5378-0407) /uL Lymph # (Auto) 1200 (7216-8484) /uL Barnes # (Auto) 400 (0-900) /uL Eos # (Auto) 400 (0-450) /uL Baso # (Auto) 0 (0-100) /uL ESR 3 (0-15) MM/HR Sodium 139 (137-145) mmol/L Potassium 4.3 (3.4-5.1) mmol/L Chloride 101 (98-107) mmol/L Carbon Dioxide 28 (22-32) mmol/L BUN 20 (9-20) mg/dL Creatinine 0.95 (0.66-1.25) mg/dL Estimated GFR > 60 (>60) mL/min BUN/Creatinine Ratio 21.1 (6-22) Glucose 126 H (80-110) mg/dL Calcium 10.5 H (8.4-10.2) mg/dL Total Bilirubin 0.6 (0.2-1.3) mg/dL AST 44 (17-59) IU/L ALT 37 (<50) IU/L Alkaline Phosphatase 59 (38-126) U/L C-Reactive Protein < 0.5 (<1.0) mg/dL Total Protein 7.9 (6.3-8.2) g/dL Albumin 4.7 (3.5-5.0) g/dL Globulin 3.2 (1.7-4.1) g/dL Albumin/Globulin Ratio 1.5 (1.0-2.8) Urine Color Yellow Urine Appearance Clear Urine pH 5.0 (4.5-8.0) Ur Specific Slater 1.010 (1.000-1.035) Urine Protein Negative (Negative) Urine Glucose (UA) Negative (Negative) g/dL Urine Ketones Negative (NEGATIVE) Urine Occult Blood Negative (Negative) Urine Nitrate Negative (Negative) Urine Bilirubin Negative (NEGATIVE) Urine Urobilinogen 0.2 (0.2) E.U./dL Ur Leukocyte Esterase Negative (NEGATIVE) Urine RBC None seen (0-5/HPF) Urine WBC 0-1/hpf (0-5/HPF) Ur Squamous Epith Cells None seen (0-5/HPF) Urine Bacteria None seen (None) Ur Culture Indicated? Cult not indicated Discharge Plan Departure Patient Disposition: Home Clinical Impression: Allergic drug rash due to anti-infective agent, Urticaria, Drug hypersensitivity Instructions: DI for Hives, DI for Adverse Drug Reaction -- Allergic Activity Restrictions/Additional Instructions: *You have been diagnosed with a drug hypersensitivity rash. This is not appear to meet criteria for Ramón Andreas syndrome. Please come back to the emergency department if you develop a fever, lesions in your mouth, fatigue, yellowing of your eyes, decreased urine output, or concern for systemic/total body infection or illness. Please go to the walk-in clinic in 3-5 days to recheck your end-organ function. Please have them order for you to have a UA, CBC, and CMP. If you have concerning findings, they will call you and send you to the emergency department. We will call you if your lab work today is concerning as well. Thank you for your patience today, I am sorry your wait was so long. Dermatology at [facility] recommends quadruple dose of antihistamine for good skin penetration. Please take 20 mg of cetirizine twice a day until your symptoms have resolved, please take 20 mg of prednisone each day for the next 5 days, and take Benadryl 50 mg at night to help you sleep if your hives are significant. This will start to improve over time, use any topical modality that helps it feel better, dermatology did not have any good recommendations. Lastly, please call the number listed below and schedule an appointment with a primary care provider. *What to do: *Please continue to take your regular medications as directed. [ x] New medication prescriptions sent to your pharmacy: [[facility] ] [ ] New medication written as a paper prescription [ ] No new medications given *Please follow up with your primary care provider in 2-3 days, call for an appointment. Let them know you were seen in the Emergency Department and that we asked that you be seen for follow-up. We will electronically transmit a record of today's note if your PCP is in our system *If you do not have a primary care provider please contact [phone] to establish care with one of [facility] primary care providers. *Return to Emergency Department if you should have any new, worsening, or concerning symptoms, such as [fever greater than 101F, chills, worsening pain, persistent vomiting or other bothersome symptoms]. Prescriptions: New cetirizine 10 mg tablet 20 mg PO BID Qty: 120 0RF prednisone 20 mg tablet 20 mg PO DAILY 5 Days Qty: 5 0RF hydroxyzine HCl 25 mg tablet 25 mg PO Q6-8H PRN (Reason: itching) Qty: 60 0RF diphenhydramine HCl [Benadryl] 25 mg capsule 50 mg PO BEDTIME PRN (Reason: allergy symptoms) Qty: 30 0RF No Action mupirocin 2 % ointment 1 applic topical BID Qty: 15 0RF hydroxyzine HCl 25 mg tablet 25 mg PO BEDTIME Qty: 10 0RF albuterol sulfate [Ventolin HFA] 90 MCG/PUFF HFA aerosol inhaler 2 puff INH Q4HP PRNQty: 1 0RF triamcinolone acetonide 0.5 % ointment 1 applic topical TID Qty: 2 0RF nystatin-triamcinolone 100,000-0.1 unit/g-% cream 1 applictn TOP BID Qty: 30 1RF losartan-hydrochlorothiazide 100-25 mg tablet 1 tab PO DAILY hydrocodone-acetaminophen [Pine] 5-325 mg tablet 2 tab PO Q6H PRN (Reason: painful procedure) Qty: 14 0RF Referrals: [facility] [Provider Group] (walk in clinic ) Visit Report Forms: Patient Portal/API <Hallie Wallace DO - Last Filed: 11/19/21 08:48> Cosign ED Attending Cosignature Attestation: I was immediately available in the department for consultation. Documentation has been reviewed. Case was discussed and patient was seen and evaluated independently by myself in the department. Patient has erythematous rash mainly affecting areas that are sun-exposed but does have some changes to his torso as well. Patient has significant erythema with crusting and blistered lesions have crusted over. There is no sloughing. There is no mucosal or intraoral lesions appreciated. Patient has not had fevers or other systemic symptoms. Suspected to be from sulfa exposure from antibiotic. Patient has known sulfa allergy. Patient does not appear to require hospitalization but would like Dermatology consult for possible Ramón Andreas's, toxic epidermal necrolysis versus drug eruption. Recommendations are included above. Patient appears stable throughout his stay in the emergency department.
[2021-11-15] MEDS: diphenhydrAMINE 50 MG/ML VIAL 25 MG IV (17:05)
[2021-11-15] MEDS: PANTOPRAZOLE 40 MG VIAL 20 MG IV (17:05)
[2021-11-15] MEDS: LORATADINE 10 MG TABLET PO (17:06)
[2021-11-15] MEDS: methylPREDNISolone 125 MG/2 ML VIAL IV (17:06)
--- NOTE | 2021-11-15 20:03 | PC.NURSE ---
Pt reports itching is reduced from a 6/10 to a 4/10 since medications given.
[2021-11-15 20:18] LABS: Add Manual Diff / Slide Review NO; Basophils Absolute Auto 0 /uL (0-100); Basophils Percent Auto 0.3 % (0-2); Eosinophils Absolute Auto 400 /uL (0-450); Eosinophils Percent Auto 5.3 % (2-4); Hematocrit 45.7 % (41-53); Hemoglobin 15.5 g/dL (13.5-17.5); Lymphocytes Absolute Auto 1200 /uL (1100-4500); Lymphocytes Percent Auto 15.4 % (25-40); Mean Corpuscular HGB Conc 33.9 % (30-36); Mean Corpuscular Hemoglobin 28.8 PG (26-34); Mean Corpuscular Volume 84.9 fL (80-100); Monocytes Absolute Auto 400 /uL (0-900); Monocytes Percent Auto 5.3 % (3-14); Neutrophils Absolute Auto 6000 /uL (1500-7000); Neutrophils Percent Auto 73.7 % (50-75); Platelet Count 204 X10^3/uL (150-400); Red Blood Cell Count 5.39 X10^6/uL (4.5-5.9); Red Cell Distribution Width 14.9 % (11.6-14.8); White Blood Cell Count 8.1 X10^3/uL (4.5-11.0)
[2021-11-15 20:29] LABS: Alanine Aminotransferase 37 IU/L (<50); Albumin 4.7 g/dL (3.5-5.0); Albumin Globulin Ratio 1.5 (1.0-2.8); Alkaline Phosphatase 59 U/L (38-126); Aspartate Aminotransferase 44 IU/L (17-59); BUN Creatinine Ratio 21.1 (6-22); Bilirubin Total 0.6 mg/dL (0.2-1.3); Blood Urea Nitrogen 20 mg/dL (9-20); C-Reactive Protein Quant < 0.5 mg/dL (<1.0); Calcium 10.5 mg/dL (8.4-10.2); Carbon Dioxide 28 mmol/L (22-32); Chloride 101 mmol/L (98-107); Estimated Glomerular Filt Rate > 60 mL/min (>60); Globulin 3.2 g/dL (1.7-4.1); Glucose 126 mg/dL (80-110); HEMOLYSIS 22 (0-50); Potassium 4.3 mmol/L (3.4-5.1); Sodium 139 mmol/L (137-145); Total Protein 7.9 g/dL (6.3-8.2)
[2021-11-15 20:48] LABS: Appearance Urine UA CLEAR; Bilirubin Urine UA NEGATIVE (NEGATIVE); Color Urine UA YELLOW; Glucose Urine UA NEGATIVE (Negative); Ketones Urine UA NEGATIVE (NEGATIVE); Leukocyte Esterase Urine UA NEGATIVE (NEGATIVE); Nitrite Urine UA NEGATIVE (Negative); Occult Blood Urine UA NEGATIVE (Negative); Protein Urine UA NEGATIVE (Negative); Urobilinogen Urine UA 0.2 E.U./dL (0.2)
[2021-11-15 21:06] LABS: Erythrocyte Sedimentation Rate 3 MM/HR (0-15)
[2021-11-15 21:11] LABS: Bacteria Urine None Seen; Culture Indicated Urine Cult Not Indicated; RBC Urine None Seen (0-5/HPF); Squamous Epithelial Cell Urine None Seen (0-5/HPF); WBC Urine 0-1/HPF (0-5/HPF)
== END 2021-11-15 20:35 | disposition home or self-care (01) ==
PROVIDERS: Emergency Provider Nurse Practitioner Critical Care Medicine
DX: L27.0 Generalized skin eruption due to drugs and medicaments taken internally (principal); L50.9 Urticaria, unspecified; Z88.9 Allergy status to unspecified drugs, medicaments and biological substances
CPT/HCPCS: 80053; 81001; 85025; 85651; 86140; 96374; 96375; 99284; C9113; J1200; J2930

== ENCOUNTER → 2022-10-26 12:42 | Outpatient (CLI) | payer BC, SELFPAY ==
[2017-11-22 21:25] VITALS: BMI 44.6
--- NOTE | 2022-10-26 | DI.MRI.S_ITS ---
PROCEDURE: MR KNEE RT WO CON INDICATIONS: INTERNAL DERANGEMENT OF RT KNEE TECHNIQUE: Noncontrast sagittal PD fast spin echo and T2 fast spin echo with fat saturation, sagittal 3-D FLASH with fat saturation; coronal T1 spin echo and PD fast spin echo with fat saturation, and axial PD fast spin echo with fat saturation through the knee. COMPARISON: [facility], CR, XR KNEE ARTHRITIC SERIES BI, 08/02/2022, 16:02. FINDINGS: Image quality: Degraded by body habitus Menisci: Linear oblique high T2 signal intensity traverses the inner, middle, and peripheral thirds of the posterior horn medial meniscus, demonstrating superior articular surface extension, indicating oblique tearing. Medial extrusion of the medial meniscus is present. Vertically oriented linear high T2 signal intensity traverses the medial meniscal body, demonstrating superior and inferior articular surface extension, indicating radial tearing. Truncation of the free edge of the lateral meniscal body is present, indicating radial tearing. Cruciate ligaments: The anterior and posterior cruciate ligaments appear intact. Medial structures: The medial collateral ligament appears intact. Visualized portions of the pes anserinus tendons appear normal. No abnormal bursal fluid. Lateral structures: The lateral collateral ligament demonstrates mild T2 signal elevation within its substance at the femoral origin. The long and short heads of the biceps femoris tendon appear intact. The popliteus tendon appears normal. Iliotibial band appears normal. Anterior structures: The quadriceps and patellar tendons appear intact. Patellar alignment is normal. Mild lateral ventral trochlear prominence. No edema in the infrapatellar fat pad. Bones and cartilage: No bone marrow contusions or fractures. There is mild subchondral degenerative marrow edema within the weight-bearing aspects of the medial femoral condyle and medial tibial plateau. Mild tricompartmental periarticular osteophyte formation is present. Severe articular cartilage loss diffusely overlies the weight-bearing aspects of the medial femoral condyle and medial tibial plateau. Moderate articular cartilage loss overlies the lateral patellar facet inferiorly. Joint space: There is a small knee joint effusion and a trace Ferrell's cyst. Normal appearing synovial plicae are incidentally noted. IMPRESSION: 1. Tricompartmental osteoarthritis with associated articular cartilage loss. 2. Medial and lateral meniscal tearing. 3. Knee joint effusion and Ferrell's cyst. 4. Low-grade partial thickness lateral collateral ligament tear. Dictated by: Lily Ramos M.D. on 10/26/2022 at 15:16 Approved by: Lily Ramos M.D. on 10/26/2022 at 15:20
== END ==
PROVIDERS: Referring Provider Orthopaedic Surgery Foot and Ankle Surgery; Visit Provider Orthopaedic Surgery Foot and Ankle Surgery
DX: S83.241A Other tear of medial meniscus, current injury, right knee, initial encounter (principal); S83.281A Other tear of lateral meniscus, current injury, right knee, initial encounter; S83.421A Sprain of lateral collateral ligament of right knee, initial encounter; M17.11 Unilateral primary osteoarthritis, right knee; M23.91 Unspecified internal derangement of right knee; M25.461 Effusion, right knee
CPT/HCPCS: 73721

== ENCOUNTER → 2023-08-20 08:45 | Outpatient (CLI) | payer BC, SELFPAY ==
[2017-11-22 21:25] VITALS: BMI 44.6
[2023-08-20 10:26] LABS: Urine N gonorrhoeae NOT DETECTED
[2023-08-20 10:28] LABS: Urine Chlamydia NOT DETECTED
== END ==
PROVIDERS: Visit Provider Nurse Practitioner Family
DX: R30.0 Dysuria (principal); Z72.52 High risk homosexual behavior
CPT/HCPCS: 87491; 87591

== ENCOUNTER → 2023-08-20 09:25 | Outpatient (CLI) | payer BC, SELFPAY ==
[2017-11-22 21:25] VITALS: BMI 44.6
[2023-08-20 11:59] LABS: Hepatitis B Surface Antigen NEGATIVE s/c (NEGATIVE)
[2023-08-20 12:16] LABS: HIV 1 & 2 Ab/Ag 4th Gen Combo NEGATIVE (NEGATIVE); Hep C Virus Ab w/Reflex Quant NEGATIVE s/c (NEGATIVE)
[2023-08-21 06:52] LABS: HSV 2 IGG AB < 0.91 index (0.00-0.90); RPR Screen Non Reactive (Non Reactive)
== END ==
PROVIDERS: Referring Provider Nurse Practitioner Family; Visit Provider Nurse Practitioner Family
DX: Z72.52 High risk homosexual behavior (principal); R30.0 Dysuria
CPT/HCPCS: 36415; 86592; 86695; 86696; 86803; 87340; 87389; 87491; 87591

== ENCOUNTER → 2023-11-14 14:13 | Outpatient (CLI) | payer BC, SELFPAY ==
[2017-11-22 21:25] VITALS: BMI 44.6
== END ==
LOC: LAB 14:14
PROVIDERS: Referring Provider Nurse Practitioner Family; Visit Provider Nurse Practitioner Family
DX: R19.7 Diarrhea, unspecified (principal)
CPT/HCPCS: 87329; 87493

== ENCOUNTER 2023-12-13 11:55 | Day surgery (SDC) | payer BC, SELFPAY ==
[2017-11-22 21:25] VITALS: BMI 44.6
--- NOTE | 2023-12-13 | PATH_ITS ---
[facility] Accession Number: [id number] No. of containers..02 Tissue . 01 Material submitted: . PART A: sigmoid colon - SIGMOID P PART B: rectum - RECTAL BIOPSY . 01 Diagnosis: A. SIGMOID COLON, BIOPSY: Focal, mildly active colitis adjacent to a benign lymphoid aggregate. See comment. Negative for dysplasia and malignancy. . B. RECTUM, BIOPSY: Rectal mucosa with a single crypt abscess adjacent to a lymphoid aggregate. See comment. Negative for dysplasia and malignancy. MRV 12/18/2023 1457 Local . 01 Comment: The sigmoid and rectal biopsies both show focal activity withouth associated crypt distortion or lymphoplasmacytosis of the lamina propria. No obvious viral cytopathic effects or parasitic organisms are identifed. The differential diagnosis includes bowel preparation effects, infection, medication related mucosal injury, trauma/prolapse/diverticular disease associated colitis, and less likely idiopathic inflammatory bowel disease. . . 01 Electronically signed: . Gilda Ramsey MD, Pathologist NPI- [id number] . 01 Gross description: . A. Received in formalin with two patient identifiers and sigmoid colon, are three meeir soft tissue fragments, 0.3 to 0.5 cm in greatest dimension. Submitted in A1. B. Received in formalin with two patient identifiers and rectal biopsy, are two meier soft tissue fragments, 0.2 to 0.3 cm in greatest dimension. Submitted in B1. ([id number]) /MRV 12/16/2023 1209 Local . 01 Pathologist provided ICD-10: R19.4 . 01 CPT . 819860, [id number] Specimen Comment: A courtesy copy of this report has been sent to [phone] Performed at: [address] [place] [address] [address], [place], [place] [id number] MD Solis Khoury MD Phone: [phone]
[2023-12-13 12:16] VITALS: BP 126/77; PULSE 82; RESP 16; TEMP 36.5; O2SAT 97
[2023-12-13] MEDS: LACTATED RINGERS 1,000 ML 42 ML IV (12:26)
--- NOTE | 2023-12-13 12:50 | P.HP_ITS ---
History of Present Illness History of Present Illness Date Patient Seen: 12/13/23 Time Patient Seen: 12:50 Chief complaint: Screening Colonoscopy Narrative: Davonte is a 63-year-old man who is here for colonoscopy. He has had a polyp removed in the past. [facility] Medical History (Updated 12/13/23 @ 12:51 by Guido Banda MD) HTN (hypertension) Surgical History History of nasal surgery Pyloric stenosis Family History Father Heart disease Mother Cancer Social History marital status: household members: spouse Smoking Status: Never smoker alcohol intake: current substance use type: does not use Meds Home Medications and Allergies Home Medications Medication Instructions Recorded Confirmed Type losartan 100 1 tab PO DAILY 11/16/17 12/13/23 History mg-hydrochlorothiazide 25 mg tablet doxazosin 2 mg tablet 2 mg PO DAILY 10/22/23 12/13/23 History sodium,potassium,mag sulfates 17.5 See Rx Instructions PO .COMPLEX 11/26/23 Rx gram-3.13 gram-1.6 gram oral soln #354 mL (Suprep Bowel Prep Kit) Allergies Allergy/AdvReac Type Severity Reaction Status Date / Time Sulfa (Sulfonamide AdvReac Redness of Verified 12/13/23 12:14 Antibiotics) Skin Exam Vital Signs (past 8 hours): - 12/13/23 12:16 Temperature 97.7 F Pulse Rate 82 Respiratory Rate 16 Blood Pressure 126/77 Pulse Oximetry 97 Oxygen Delivery Method Room Air Oxygen Flow Rate 0 Oxygen Delivery Method Room Air Oxygen Flow Rate 0 Const General: No acute distress Assessment & Plan Assessment and plan (1) History of colon polyps: Status: Acute Plan We reviewed the risks and benefits of colonoscopy and he would like to proceed Time-Based Coding :: [TOTAL MINUTES] spent with patient and on the chart (including review of chart, obtaining history, exam, reviewing outside data, placing orders, documenting exam and treatment plan, and counseling patient) on [DATE].
[2023-12-13 13:20] VITALS: BP 111/72; PULSE 64; RESP 14; TEMP 36.4; O2SAT 95
--- NOTE | 2023-12-13 13:22 | PM.OP.COLON ---
Operative Date/Time/Diagnoses Date of procedure: 12/13/23 Time of procedure: 13:22 Pre-op diagnosis: Colon cancer screening Post-op diagnosis: same Procedure & Clinicians Study performed: Colonoscopy Same procedure as scheduled: Yes Surgeon: Guido Banda Procedure Notes Procedure in detail: Surgeon: Guido Banda MD Anesthesia: Anna Serrano CRNA Procedure: The patient was brought to the endoscopy suite, placed in left lateral decubitus position. The patient was connected to monitoring devices. A time-out was performed. Sedation was administered. Once the patient was adequately sedated, a digital rectal exam was performed and was normal. The scope was then inserted and advanced to the cecum where the appendiceal orifice was identified and photographed. The scope was then slowly withdrawn over greater than 6 minutes. The mucosa was thoroughly inspected. No polyps were identified. There was patchy inflammation in the sigmoid colon and rectum. Random biopsies were taken from the sigmoid colon and rectum using cold forceps biopsies. The scope was retroflexed in the rectum. No additional abnormalities were found. The scope was straightened and removed. The patient was awakened and brought to recovery. Scope withdrawal time: 11 minutes Sedation time: 17 minutes EBL: 2 mL Findings: Patchy inflammation of the sigmoid colon and rectum Post-procedure Disposition: PACU
[2023-12-13 13:25] VITALS: BP 111/71; PULSE 73; RESP 16; O2SAT 97
[2023-12-13 13:30] VITALS: BP 111/69; PULSE 59; RESP 16; TEMP 36.3; O2SAT 97
[2023-12-13 13:39] VITALS: BP 120/63; PULSE 50; RESP 18; O2SAT 97
== END 2023-12-13 13:48 | disposition home or self-care (01) ==
PROVIDERS: Referring Provider Surgery; Visit Provider Surgery
PROC: 0DJD8ZZ Inspection of Lower Intestinal Tract, Via Natural or Artificial Opening Endoscopic (ICD-10-PCS; CPT 45378; principal; 2023-12-13 13:45)
DX: Z12.11 Encounter for screening for malignant neoplasm of colon (principal); Z86.010 Personal history of colon polyps; K52.9 Noninfective gastroenteritis and colitis, unspecified; K61.1 Rectal abscess
CPT/HCPCS: 45380; J2704

== ENCOUNTER → 2025-02-16 07:48 | Outpatient (CLI) | payer SELFPAY ==
[2017-11-22 21:25] VITALS: BMI 44.6
[2025-02-16 08:20] LABS: Hematocrit 44.9 % (41-53); Hemoglobin 15.6 g/dL (13.5-17.5); Mean Corpuscular HGB Conc 34.8 % (30-36); Mean Corpuscular Hemoglobin 29.2 PG (26-34); Mean Corpuscular Volume 84.0 fL (80-100); Platelet Count 138 X10^3/uL (150-400)
[2025-02-16 08:34] LABS: Alanine Aminotransferase 52 IU/L (<50); Albumin 4.9 g/dL (3.5-5.0); Albumin Globulin Ratio 1.6 (1.0-2.8); Alkaline Phosphatase 50 U/L (38-126); Blood Urea Nitrogen 15 mg/dL (9-20); Calcium 10.2 mg/dL (8.4-10.2); Carbon Dioxide 26 mmol/L (22-32); Chloride 103 mmol/L (98-107); Cholesterol 248 mg/dL (140-199); Estimated Glomerular Filt Rate > 60 mL/min (>60); Globulin 3.0 g/dL (1.7-4.1); Glucose 131 mg/dL (70-99); HDL Cholesterol 45 mg/dL (40-60); HEMOLYSIS < 15 (0-50); Potassium 4.2 mmol/L (3.4-5.1); Sodium 137 mmol/L (137-145); Total Protein 7.9 g/dL (6.3-8.2); Triglycerides 314 mg/dL (35-150)
[2025-02-16 09:39] LABS: Microalbumi Creatinin Ratio Ur 50.0 ug/mg CR (<30)
== END ==
PROVIDERS: PCP Family Medicine; Referring Provider Family Medicine; Visit Provider Family Medicine
DX: Z12.5 Encounter for screening for malignant neoplasm of prostate (principal); I10 Essential (primary) hypertension
CPT/HCPCS: 36415; 80053; 80061; 82043; 82570; 85027; G0103